=== PATIENT | male | born 1985 | race African-American/Black ===

== ENCOUNTER 2017-09-19 14:10 | Emergency (ER) | payer BC ==
--- NOTE | 2017-09-19 14:58 | EDM.PDOC ---
<Beverly Nunez - Last Filed: 09/19/17 14:59> ED HPI GENERAL MEDICAL PROBLEM - General Chief Complaint: Upper Extremity Injury/Pain Stated Complaint: LUMP ON L HAND Time Seen by Provider: 09/19/17 14:40 Source of Information: Reports: Patient History Limitations: Reports: No Limitations - History of Present Illness INITIAL COMMENTS - FREE TEXT/NARRATIVE: Patient comes in today with complaint of left dorsal hand mass. Mass has been present for 3-4 months, is not painful, does not seem to be growing or shrinking in size, and is not associated with any known injury. Patient denies pain, swelling, numbness, tingling, or weakness. Patient has slightly reduced wrist extension but otherwise has full ROM of the wrist and fingers. Duration: Constant Location: Reports: Upper Extremity, Left Improves with: Reports: None Worsens with: Reports: None Associated Symptoms: Reports: No Other Symptoms - Related Data Allergies Allergy/AdvReac Type Severity Reaction Status Date / Time No Known Allergies Allergy Verified 09/19/17 14:26 Home Meds: Home Meds . [No Known Home Meds] 09/19/17 [History] Past Medical History - Past Surgical History Musculoskeletal Surgical History: Reports: Other (See Below) Other Musculoskeletal Surgeries/Procedures:: fracture left hand Social & Family History - Tobacco Use Smoking Status *Q: Current Every Day Smoker Years of Tobacco use: 12 Packs/Tins Daily: 0.5 - Recreational Drug Use Recreational Drug Use: No Review of Systems - Review of Systems Review Of Systems: ROS reveals no pertinent complaints other than HPI. ED EXAM, GENERAL - Physical Exam Exam Limited By: No Limitations General Appearance: Alert, WD/WN, No Apparent Distress Extremities: Other (2 cm x 2.5 x 1 cm soft, fixed, lobulated, non tender mass on the dorsum of left hand. Aproximately 60 degrees of wrist extension, otherwise full ROM. Sensation intact.) Course - Vital Signs Last Recorded V/S: Last Vital Signs Temp 98.4 F 09/19/17 14:27 Pulse 85 09/19/17 14:27 Resp 13 09/19/17 14:27 BP 160/88 H 09/19/17 14:27 Pulse Ox 98 09/19/17 14:27 Departure - Departure Time of Disposition: 14:55 Disposition: Home, Self-Care 01 Condition: Good Clinical Impression: Ganglion - Discharge Information *PRESCRIPTION DRUG MONITORING PROGRAM REVIEWED*: No *COPY OF PRESCRIPTION DRUG MONITORING REPORT IN PATIENT DARRYL: No Instructions: Ganglion Cyst Referrals: PCP,None [Primary Care Provider] - Forms: ED Department Discharge Additional Instructions: Please follow up with Dr. Fischer with [facility], phone number: [phone]. Take ibuprofen as needed for any pain or discomfort. <Marcelina Rendon - Last Filed: 09/19/17 16:56> Review of Systems - Review of Systems Review Of Systems: See Below ED EXAM, GENERAL - Physical Exam Exam: See Below Free Text/Narrative:: I have also seen and examined patient and agree with PA student, Beverly Tucker assessment and plan of care. Eye Exam: Bilateral Eye: EOMI, PERRL Ears: Hearing Grossly Normal Nose: Normal Inspection Throat/Mouth: Normal Inspection, Normal Lips, Normal Voice, No Airway Compromise Head: Atraumatic, Normocephalic Neck: Normal Inspection Respiratory/Chest: No Respiratory Distress Peripheral Pulses: 2+: Radial (L) Neurological: Alert, Oriented, CN II-XII Intact, Normal Cognition Psychiatric: Normal Affect, Normal Mood Skin Exam: Warm, Dry, Intact
== END 2017-09-19 15:09 | disposition home or self-care (01) ==
LOC: JD.ED 14:10
DX: M67.442 Ganglion, left hand (principal); F17.210 Nicotine dependence, cigarettes, uncomplicated
CPT/HCPCS: 99283